=== PATIENT | male | born 1955 ===

== ENCOUNTER 2022-05-02 17:10 | Emergency (ER) | payer MEDICARE ==
[~2022-05-02] VITALS: Ht 177.8 cm; Wt 90.9 kg
[2022-05-02 17:14] VITALS: BP 173/74
== END 2022-05-02 21:54 | disposition left against medical advice (07) ==
LOC: ER 17:11
DX: K08.89 Other specified disorders of teeth and supporting structures (principal); Z53.21 Procedure and treatment not carried out due to patient leaving prior to being seen by health care provider